=== PATIENT | female | born 1965 | race Caucasian/White ===

== ENCOUNTER → 2020-01-02 10:23 | Outpatient (BNVA) | payer MEDICARE, SELFPAY | PROVIDERS: Family Provider Nurse Practitioner; PCP Nurse Practitioner; Visit Provider Nurse Practitioner | DX: M25.562 Pain in left knee (principal); E04.1 Nontoxic single thyroid nodule; I10 Essential (primary) hypertension; E55.9 Vitamin D deficiency, unspecified | CPT/HCPCS: 73562; 80053; 82306; 84443 ==

== ENCOUNTER 2020-02-14 10:07 | Outpatient (CLI) | payer MEDICARE, SELFPAY ==
--- NOTE | 2020-02-14 10:15 | US_ITS ---
WS: [id number] THYROID ULTRASOUND HISTORY: cyst thyroid 06/2019 COMPARISON: 07/11/2019 Right lobe: 2.8 cm x 2.8 cm x 2.0 cm. Volume: 8.2 cm3. Solid mass with a few cystic components in the mid RIGHT thyroid. Solid nodule measures 1.9 x 1.7 x 2 .4 cm. Similar diameter as compared to the prior study. Minimal increased vascularity. Left lobe: 4.8 cm x 1.4 cm x 1.3 cm. Volume: 4.4 cm3. Hypoechoic nodule in the posterior LEFT gland with a maximum diameter 5 mm. Isthmus: 0.4 cm. US/US thyroid [id number] IMPRESSION: 1. Stable solid RIGHT thyroid nodule with a maximum diameter of 2.4 cm mid RIG HT gland. Recommend yearly ultrasound evaluation. Fine-needle aspiration by ulaurelia marieound also be performed due to the size. 2. Hypoechoic nodule LEFT gland.
== END 2020-02-14 10:08 | disposition home or self-care (01) ==
LOC: RAD 10:07
PROVIDERS: Family Provider Nurse Practitioner; PCP Nurse Practitioner; Visit Provider Nurse Practitioner
DX: E04.1 Nontoxic single thyroid nodule (principal)
CPT/HCPCS: 76536

== ENCOUNTER → 2020-08-10 08:25 | Outpatient (BNVA) | payer MEDICARE, SELFPAY | PROVIDERS: Family Provider Nurse Practitioner; PCP Nurse Practitioner; Visit Provider Nurse Practitioner | DX: I10 Essential (primary) hypertension (principal); E04.1 Nontoxic single thyroid nodule; E55.9 Vitamin D deficiency, unspecified | CPT/HCPCS: 80053; 82306; 84443 ==

== ENCOUNTER → 2021-02-05 08:51 | Outpatient (BNVA) | payer MEDICARE, SELFPAY | PROVIDERS: Family Provider Nurse Practitioner; PCP Nurse Practitioner; Visit Provider Nurse Practitioner | DX: E04.1 Nontoxic single thyroid nodule (principal); I10 Essential (primary) hypertension; E55.9 Vitamin D deficiency, unspecified | CPT/HCPCS: 80053; 80061; 82306; 84443 ==

== ENCOUNTER → 2021-06-22 08:37 | Outpatient (BNVA) | payer MEDICARE, SELFPAY | PROVIDERS: Family Provider Nurse Practitioner; PCP Nurse Practitioner; Visit Provider Nurse Practitioner | DX: E55.9 Vitamin D deficiency, unspecified (principal); E04.1 Nontoxic single thyroid nodule; G51.0 Bell's palsy | CPT/HCPCS: 80053; 82306; 84443 ==

== ENCOUNTER → 2021-12-14 08:34 | Outpatient (BNVA) | payer MEDICARE, SELFPAY | PROVIDERS: Family Provider Nurse Practitioner; PCP Nurse Practitioner; Visit Provider Nurse Practitioner | DX: I10 Essential (primary) hypertension (principal); E55.9 Vitamin D deficiency, unspecified | CPT/HCPCS: 80053; 80061; 82306; 84443 ==

== ENCOUNTER → 2022-07-12 10:28 | Outpatient (BNVA) | payer SELFPAY | PROVIDERS: Family Provider Nurse Practitioner; PCP Nurse Practitioner; Visit Provider Dermatology | DX: Z01.89 Encounter for other specified special examinations (principal) ==

== ENCOUNTER → 2022-12-13 08:17 | Outpatient (BNVA) | payer MEDICARE, SELFPAY | PROVIDERS: Family Provider Nurse Practitioner; PCP Nurse Practitioner; Visit Provider Nurse Practitioner | DX: E55.9 Vitamin D deficiency, unspecified (principal); I10 Essential (primary) hypertension; E04.1 Nontoxic single thyroid nodule | CPT/HCPCS: 80053; 82306; 84443 ==

== ENCOUNTER → 2023-11-21 08:28 | Outpatient (BNVA) | payer MEDICARE, SELFPAY | PROVIDERS: Family Provider Nurse Practitioner; PCP Nurse Practitioner; Visit Provider Nurse Practitioner | DX: I10 Essential (primary) hypertension (principal) | CPT/HCPCS: 80053; 80061; 84439; 84443; 84481 ==

== ENCOUNTER → 2024-05-01 09:29 | Outpatient (BNVA) | payer OTHER, SELFPAY | PROVIDERS: Family Provider Nurse Practitioner; PCP Nurse Practitioner; Visit Provider Nurse Practitioner | DX: I10 Essential (primary) hypertension (principal); E78.2 Mixed hyperlipidemia; E55.9 Vitamin D deficiency, unspecified | CPT/HCPCS: 80053; 80061; 82306; 84443 ==

== ENCOUNTER 2024-05-14 07:58 | Outpatient (CLI) | payer MEDICARE, SELFPAY ==
--- NOTE | 2024-05-14 08:30 | US_ITS ---
WS: [id number] ULTRASOUND THYROID TECHNIQUE: Ultrasound of the thyroid. CLINICAL INFORMATION: E04.1 - Nontoxic single thyroid nodule COMPARISON: 2019 FINDINGS: Thyroid: Right and left thyroid lobes are normal in size and echotexture. Right thyroid lobe: 4.1 cm x 1.8 cm x 1.1 cm Hypoechoic complex RIGHT inferior thyroid nodule appears stable compared to previous measuring 1.7 x 1.7 x 1.8 cm. This appears partially cystic today. Left thyroid lobe: 3.9 cm x 1.2 cm x 2.1 cm. Simple cyst LEFT mid thyroid measuring 6 mm Isthmus: 0.4 mm. Cervical lymphadenopathy: None. US/US thyroid [id number] IMPRESSION: Hypoechoic complex RIGHT inferior thyroid nodule appears stable compared to pre vious measuring 1.7 x 1.7 x 1.8 cm. Mildly Suspicious: FNA if e 2.5 cm; Follow if e 1.5 cm at 1, 3, and 5 y
== END 2024-05-14 07:59 | disposition home or self-care (01) ==
LOC: RAD 07:59
PROVIDERS: Family Provider Nurse Practitioner; PCP Nurse Practitioner; Visit Provider Nurse Practitioner
DX: E04.1 Nontoxic single thyroid nodule (principal)
CPT/HCPCS: 76536

== ENCOUNTER → 2024-05-16 15:13 | Outpatient (BNVA) | payer MEDICARE, SELFPAY | PROVIDERS: Family Provider Nurse Practitioner; PCP Nurse Practitioner; Visit Provider Podiatrist Foot & Ankle Surgery | DX: M72.2 Plantar fascial fibromatosis; M79.89 Other specified soft tissue disorders | CPT/HCPCS: 73610; 73630; 99203 ==

== ENCOUNTER → 2024-06-17 07:57 | Outpatient (BNVA) | payer MEDICARE, SELFPAY | PROVIDERS: Family Provider Nurse Practitioner; PCP Nurse Practitioner; Visit Provider Podiatrist Foot & Ankle Surgery | DX: M72.2 Plantar fascial fibromatosis (principal); M79.89 Other specified soft tissue disorders | CPT/HCPCS: 99213 ==

== ENCOUNTER → 2024-10-16 09:33 | Outpatient (BNVA) | payer MEDICARE, SELFPAY | PROVIDERS: Family Provider Nurse Practitioner; PCP Nurse Practitioner; Visit Provider Nurse Practitioner | DX: E04.1 Nontoxic single thyroid nodule (principal); I10 Essential (primary) hypertension; E78.2 Mixed hyperlipidemia; L30.9 Dermatitis, unspecified | CPT/HCPCS: 80053; 80061; 84443 ==

== ENCOUNTER → 2025-04-02 09:27 | Outpatient (BNVA) | payer MEDICARE, SELFPAY | PROVIDERS: Family Provider Nurse Practitioner; PCP Nurse Practitioner; Visit Provider Nurse Practitioner | DX: I10 Essential (primary) hypertension (principal); E78.2 Mixed hyperlipidemia; E04.1 Nontoxic single thyroid nodule | CPT/HCPCS: 80053; 80061; 84443 ==

== ENCOUNTER 2025-04-18 08:44 | Outpatient (CLI) | payer MEDICARE, SELFPAY ==
--- NOTE | 2025-04-18 08:52 | XR_ITS ---
WS: [id number] Left knee, 3 views, 04/18/2025 Clinical Data: M25.562 - Pain in left knee Comparison: Left knee, 01/02/2020 Findings: No fractures or dislocations are seen. There is medial joint compartment narrowing with irregularity of the articular surfaces of the medial tibial plateau and medial femoral condyle. There are spurs of the medial femoral condyle, lateral femoral condyle, medial tibial plateau and lateral tibial plateau. 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 The patellofemoral joint is narrowed with irregularity and spurring. The soft tissues are unremarkable. XR/XR knee LT 3V* [id number] Impression: Severe osteoarthritis of the left knee.
--- NOTE | 2025-04-18 09:00 | US_ITS ---
WS: [id number] THYROID ULTRASOUND HISTORY: E04.1 - Nontoxic single thyroid nodule COMPARISON: 05/14/2024, 02/14/2020 Right lobe: 2.1 cm x 2.4 cm x 5.1 cm (w x ap x l). Volume: 12.2 cm3. Markedly enlarged RIGHT thyroid. Reidentified is a complex cystic nodule in the mid RIGHT thyroid measuring 1.7 x 1.6 x 1.9 cm. This nodule has not increased in size since 2019. There is more cystic component. No increased vascularity. Left lobe: 1.4 cm x 2.1 cm x 4.4 cm (w x ap x l). Volume: 6.2 cm3. Normal sized gland. Small cystic nodule in the mid posterior LEFT thyroid measures 0.6 x 0.8 x 1.0 cm. No solid nodule. Isthmus: 0.2 cm. US/US thyroid [id number] IMPRESSION: Long-term stability large complex nodule in the mid RIGHT thyroid measuring 1.7 x 1.6 x 1.9 cm. No increased vascularity. Colloid cyst LEFT thyroid.
== END 2025-04-18 08:45 | disposition home or self-care (01) ==
LOC: RAD 08:48
PROVIDERS: Family Provider Nurse Practitioner; PCP Nurse Practitioner; Visit Provider Nurse Practitioner
DX: M17.12 Unilateral primary osteoarthritis, left knee (principal); E04.1 Nontoxic single thyroid nodule
CPT/HCPCS: 73562; 76536

== ENCOUNTER → 2025-09-17 08:23 | Outpatient (BNVA) | payer MEDICARE, SELFPAY | PROVIDERS: Family Provider Nurse Practitioner; PCP Nurse Practitioner; Visit Provider Nurse Practitioner | DX: I10 Essential (primary) hypertension (principal); E04.1 Nontoxic single thyroid nodule | CPT/HCPCS: 80053; 84443 ==